=== PATIENT | female | born 2000 | race Caucasian/White ===

== ENCOUNTER 2022-10-29 00:32 | Inpatient (IN) | payer SELFPAY ==
[2022-10-29] MEDS ORDERED: Nalbuphine HCl 10 MG/ 1ML Amp IVPUSH PRN (01:04)
[2022-10-29] MEDS ORDERED: Sodium Chloride 0.9% 10 ML Syringe FLUSH PRN (01:04)
[2022-10-29] MEDS ORDERED: Oxytocin/Lactated Ringers 10 UNIT/1,000 ML BAG IV SCH (01:15)
[2022-10-29] MEDS: Lactated Ringers 1,000 ML IV SCH ×2 (01:23→02:57)
[2022-10-29] MEDS ORDERED: Lidocaine 1% 50 ML MDV ONE (02:21)
[2022-10-29] MEDS ORDERED: Docusate Sodium 100 MG Cap PO PRN (03:03)
[2022-10-29] MEDS ORDERED: Acetaminophen 325 MG Tab PO PRN (03:03)
[2022-10-29] MEDS ORDERED: Benzocaine/Menthol 20%-0.5% Spray 78 GM Cannister TOP PRN (03:03)
[2022-10-29] MEDS ORDERED: Ibuprofen 600 MG Tab PO PRN (03:03)
[2022-10-29] MEDS ORDERED: Witch Hazel Medicated Pads 40/Jar TOP PRN (03:03)
[2022-10-29] MEDS ORDERED: Sodium Chloride 0.9% 10 ML Syringe FLUSH SCH (09:00)
[2022-10-29] MEDS: Prenatal Multivitamin with Calcium/Folic Acid/Iron Tab PO SCH (09:02)
[2022-10-30] MEDS: Prenatal Multivitamin with Calcium/Folic Acid/Iron Tab PO SCH (09:15)
== END 2022-10-30 12:02 | disposition home or self-care (01) | DRG 807 ==
LOC: JD.OBCHECK 00:32 → JD.OB 00:35 → JD.OBCHECK 01:07 → OBSVTOIN 02:13 → JD.OB 02:14
PROVIDERS: ADMIT Obstetrics & Gynecology; ATTEND Obstetrics & Gynecology
PROC: 10E0XZZ Delivery of Products of Conception, External Approach (ICD-10-PCS; principal; 2022-10-29)
PROC: 0KQM0ZZ Repair Perineum Muscle, Open Approach (ICD-10-PCS; 2022-10-29)
PROC: 10907ZC Drainage of Amniotic Fluid, Therapeutic from Products of Conception, Via Natural or Artificial Opening (ICD-10-PCS; 2022-10-29)
DX: O70.1 Second degree perineal laceration during delivery (principal); Z37.0 Single live birth; Z3A.38 38 weeks gestation of pregnancy
CPT/HCPCS: 36415; 59025; 59409; 85025; 86592; A9270-GY; J2300; J2590; J7120